=== PATIENT | male | born 1970 | race Caucasian/White ===

== ENCOUNTER 2017-01-11 17:04 | Emergency (ER) | payer SELFPAY ==
[2017-01-11] MEDS ORDERED: Fluorescein Sodium TOPICAL* 1 MG TEST OPHTHALMIC ONE (17:30)
[2017-01-11] MEDS ORDERED: Fluorescein Sodium TOPICAL* 1 MG TEST ONE (17:31)
[2017-01-11 17:36] VITALS: BP 120/79
--- NOTE | 2017-01-11 17:51 | UC ---
Eye Complaint HPI - HPI Summary HPI Summary: 46 yo male got a basic powder in his right eye yesterday AM at 06:30 Severe pain Flushed it at a sink for 15 minutes has had persistent pain since then 10/08 last PM he developed a purulent drainage this AM lids matted shut he denies photophobia blurred vision due to pus - History of Current Complaint Chief Complaint: UCEye Stated Complaint: CHEMICALS IN EYE Time Seen by Provider: 01/11/17 17:21 Hx Obtained From: Patient Onset/Duration: Sudden Onset, Lasting Hours - about 36, Lasting Days Timing: Constant Severity Initially: Severe Severity Currently: Moderate Pain Intensity: 7 Pain Scale Used: 0-10 Numeric Location of Injury: Conjunctiva, Eye Lid (lower), Eye Lid (upper) Character: Dull Aggravating Factor(s): Nothing Alleviating Factor(s): Nothing Associated Signs And Symptoms: Positive: Drainage (Purulent) - Risk Factors Penetrating Injury Risk Factor: Negative - Allergies/Home Medications Allergies/Adverse Reactions: Allergies Allergy/AdvReac Type Severity Reaction Status Date / Time No Known Allergies Allergy Verified 01/11/17 17:18 Home Medications: Home Medications Cholesterol Medication 1 tab BEDTIME 01/11/17 [History Confirmed 01/11/17] Levothyroxine Unknown Strength 1 tab BEDTIME 01/11/17 [History Confirmed ] PMH/Surg Hx/FS Hx/Imm Hx Previously Healthy: Yes - Surgical History Surgical History: None - Family History Known Family History: Positive: Hypertension - Social History Alcohol Use: Occasionally Substance Use Type: None Smoking Status (MU): Heavy Every Day Tobacco Smoker Type: Cigarettes Amount Used/How Often: 1 ppd Review of Systems Constitutional: Negative Skin: Negative Eyes: Drainage, Eye Redness ENT: Negative Respiratory: Negative Cardiovascular: Negative Gastrointestinal: Negative Genitourinary: Negative Motor: Negative Neurovascular: Negative Musculoskeletal: Negative Neurological: Negative Psychological: Negative Is Patient Immunocompromised?: No All Other Systems Reviewed And Are Negative: Yes Physical Exam Triage Information Reviewed: Yes Appearance: Well-Appearing, No Pain Distress, Well-Nourished Vital Signs: Initial Vital Signs Temp 98.3 F 01/11/17 17:11 Pulse 67 01/11/17 17:11 Resp 17 01/11/17 17:11 BP 120/79 01/11/17 17:11 Pulse Ox 97 01/11/17 17:11 Vital Signs Reviewed: Yes Eyes: Positive: Conjunctiva Inflamed - R, Discharge - R, Other: - (-) flourescein staining defect, pH of right eye 7 ENT: Positive: Normal ENT inspection Neck: Positive: Supple Respiratory: Positive: Lungs clear, Normal breath sounds, No respiratory distress, No accessory muscle use Cardiovascular: Positive: RRR, No Murmur Musculoskeletal: Positive: ROM Intact, No Edema Neurological: Positive: Alert Psychological Exam: Normal Skin Exam: Normal Eye Complaint Course/Dx - Course Course Of Treatment: MSDS reviewed - Differential Dx/Diagnosis Provider Diagnoses: chemical exposure right eye. conjunctivitis right eye Discharge - Discharge Plan Condition: Stable Disposition: HOME Prescriptions: Polymyx/Trimethoprim OPTH* [Polytrim OPHTH*] 1 - 2 drop BOTH EYES QID #1 btl Patient Education Materials: Conjunctivitis (ED) Referrals: Yousif Hyatt MD [Medical Doctor] - 3 Days Chanelle Hickman [Primary Care Provider] - Sherri Oliva MD [Medical Doctor] - 3 Days Additional Instructions: cool compresses I suggest you get ZADITOR eye drops (OTC) this will help with the gritty sensation recheck here for new or worsening symptoms tylenol or advil for pain I suggest you follow up with an eye doctor
== END 2017-01-11 17:53 | disposition home or self-care (01) ==
LOC: UCCORT 17:04
DX: H10.31 Unspecified acute conjunctivitis, right eye (principal); Z77.098 Contact with and (suspected) exposure to other hazardous, chiefly nonmedicinal, chemicals; F17.210 Nicotine dependence, cigarettes, uncomplicated
CPT/HCPCS: 99202; A9270-GY; G0463